=== PATIENT | male | born 1975 | race Caucasian/White ===

== ENCOUNTER 2021-11-15 17:25 | Emergency (ER) | payer SELFPAY ==
[~2021-11-15] VITALS: Ht 182.9 cm; Wt 77.1 kg
[2021-11-15] MEDS ORDERED: SODIUM CHLORIDE 0.9% 1000ML 1,000 ML IV ONE (17:45)
[2021-11-15] MEDS ORDERED: SODIUM CHLORIDE 0.9% 1000ML 1,000 ML ONE (17:51)
[2021-11-15 18:02] LABS: HEMATOCRIT 34.7 % (38.2-49.6); HEMOGLOBIN 12.1 g/dL (14.0-18.0); LYMPHOCYTES # (AUTO) 1.5 (1.0-3.2); LYMPHOCYTES % 37.7 % (18.0-39.1); MEAN CORPUSCULAR HEMOGLOBIN 35.4 pg (28-32); MEAN CORPUSCULAR HGB CONC 34.9 g/dL (31-35); MEAN CORPUSCULAR VOLUME 101.5 fL (81-99); MONOCYTES # (AUTO) 0.3 (0.2-0.8); MONOCYTES % 7.9 % (4.4-11.3); NEUTROPHILS # (AUTO) 2.1 (2.1-6.9); NEUTROPHILS % 52.2 % (38.7-80.0); PLATELET COUNT 73 x10e3/uL (140-360); RED BLOOD COUNT 3.42 x10e6/uL (4.3-5.7); RED CELL DISTRIBUTION WIDTH 14.7 % (11.7-14.4)
[2021-11-15 18:17] LABS: ALBUMIN 2.6 g/dL (3.5-5.0); ALBUMIN/GLOBULIN RATIO 0.6 (0.8-2.0); ANION GAP 15.9 mmol/L (8-16); CALCIUM 7.8 mg/dL (8.4-10.2); CREATININE, SERUM 0.65 mg/dL (0.72-1.25); POTASSIUM 3.9 mmol/L (3.5-5.1)
[2021-11-15 18:24] LABS: CREATINE KINASE MB 2.5 ng/mL (0-5.0)
[2021-11-15 18:32] LABS: INR 1.21; PARTIAL THROMBOPLASTIN TIME 36.5 seconds (23.8-35.5); PROTHROMBIN TIME 16.4 seconds (11.9-14.5)
== END 2021-11-15 20:45 | disposition other institution (70) ==
LOC: ER 17:29
DX: S06.5X0A Traumatic subdural hemorrhage without loss of consciousness, initial encounter (principal); F10.129 Alcohol abuse with intoxication, unspecified; G40.909 Epilepsy, unspecified, not intractable, without status epilepticus; K76.9 Liver disease, unspecified; R94.31 Abnormal electrocardiogram [ECG] [EKG]; Z20.822 Contact with and (suspected) exposure to COVID-19; F17.210 Nicotine dependence, cigarettes, uncomplicated
CPT/HCPCS: 36415; 70450; 80053; 80320; 82550; 82553; 84484; 85025; 85610; 85730; 93005; 99284; J7030; U0002